=== PATIENT | female | born 1965 | race Caucasian/White ===

== ENCOUNTER 2019-11-29 02:07 | Inpatient (IN) | payer OTHER ==
[~2019-11-29] VITALS: Ht 162.6 cm; Wt 110.0 kg
[2019-11-29] VITALS (10 sets, daily range): BP systolic 100–157; BP diastolic 56–87
[2019-11-29 04:06] LABS: BASOPHIL % 0.7 % (0-2)
[2019-11-29 04:10] LABS: PLATELET COUNT 420 x10^3mcL (130-400); RED CELL DISTRIBUTION WIDTH 16.7 % (11.5-14.5)
[2019-11-29 04:23] LABS: ALBUMIN 1.9 g/dL (3.4-5.0); BILIRUBIN TOTAL 0.3 mg/dL (0.20-1.00); CALCIUM 7.9 mg/dL (8.5-10.1); CARBON DIOXIDE 31.5 mmol/L (21-32); CREATININE SERUM 3.5 mg/dL (0.6-1.0); POTASSIUM SERUM 4.2 mmol/L (3.5-5.1); TOTAL PROTEIN, SERUM 6.1 g/dL (6.4-8.2)
[2019-11-29] MEDS ORDERED: ASPIRIN CHILDRE81 MG PO (06:41)
[2019-11-29] MEDS ORDERED: ATORVASTATIN CA40 M1 PO (06:41)
[2019-11-29] MEDS ORDERED: BUSPIRONE HYDR7.5 MG PO (06:42)
[2019-11-29] MEDS ORDERED: CARVEDILOL ER40 MG PO (06:42)
[2019-11-29] MEDS ORDERED: LASIX40 MG PO (06:43)
[2019-11-29] MEDS ORDERED: LAMOTRIGINE25 M2 PO (06:43)
[2019-11-29] MEDS ORDERED: PROTONIX40 MG/Pac1 PO (06:44)
[2019-11-29] MEDS ORDERED: LEVO-T200 MCG PO (06:44)
[2019-11-29] MEDS ORDERED: CONZIP100 M1 PO (06:46)
[2019-11-29] MEDS ORDERED: SERTRALINE H20 MG/ML PO (06:46)
[2019-11-30] VITALS (34 sets, daily range): BP systolic 90–151; BP diastolic 58–86
[2019-11-30 06:45] LABS: BASOPHIL % 0 % (0-2); PLATELET COUNT 358 x10^3mcL (130-400); RED CELL DISTRIBUTION WIDTH 16.1 % (11.5-14.5)
[2019-11-30 06:48] LABS: BILIRUBIN TOTAL 0.47 mg/dL (0.20-1.00); CALCIUM 7.8 mg/dL (8.5-10.1); CREATININE SERUM 3.8 mg/dL (0.6-1.0); POTASSIUM SERUM 3.5 mmol/L (3.5-5.1)
[2019-11-30 06:52] LABS: ALBUMIN 2.5 g/dL (3.4-5.0); TOTAL PROTEIN, SERUM 5.8 g/dL (6.4-8.2)
[2019-12-01] VITALS (24 sets, daily range): BP systolic 89–126; BP diastolic 52–77
[2019-12-01 05:42] LABS: ALBUMIN 2.5 g/dL (3.4-5.0); BILIRUBIN TOTAL 0.4 mg/dL (0.20-1.00); CALCIUM 7.9 mg/dL (8.5-10.1); CARBON DIOXIDE 32.7 mmol/L (21-32); CREATININE SERUM 2.7 mg/dL (0.6-1.0); POTASSIUM SERUM 3.2 mmol/L (3.5-5.1); TOTAL PROTEIN, SERUM 5.9 g/dL (6.4-8.2)
[2019-12-02] VITALS (18 sets, daily range): BP systolic 95–135; BP diastolic 59–83
[2019-12-02 05:32] LABS: BASOPHIL % 0.3 % (0-2); PLATELET COUNT 341 x10^3mcL (130-400); RED CELL DISTRIBUTION WIDTH 16.1 % (11.5-14.5)
[2019-12-02 05:57] LABS: ALBUMIN 2.3 g/dL (3.4-5.0); BILIRUBIN TOTAL 0.35 mg/dL (0.20-1.00); CALCIUM 7.9 mg/dL (8.5-10.1); CARBON DIOXIDE 33.2 mmol/L (21-32); POTASSIUM SERUM 3.5 mmol/L (3.5-5.1); TOTAL PROTEIN, SERUM 5.9 g/dL (6.4-8.2)
[2019-12-03] VITALS (16 sets, daily range): BP systolic 94–126; BP diastolic 53–77
[2019-12-03 05:13] LABS: BASOPHIL % 0.4 % (0-2); PLATELET COUNT 276 x10^3mcL (130-400)
[2019-12-03 05:16] LABS: RED CELL DISTRIBUTION WIDTH 16.5 % (11.5-14.5)
[2019-12-03 05:51] LABS: BILIRUBIN TOTAL 0.37 mg/dL (0.20-1.00); CALCIUM 8.1 mg/dL (8.5-10.1); CARBON DIOXIDE 33.5 mmol/L (21-32); CREATININE SERUM 2.6 mg/dL (0.6-1.0); POTASSIUM SERUM 3.4 mmol/L (3.5-5.1)
[2019-12-03 05:56] LABS: ALBUMIN 2.4 g/dL (3.4-5.0); TOTAL PROTEIN, SERUM 5.8 g/dL (6.4-8.2)
[2019-12-04] VITALS (15 sets, daily range): BP systolic 104–145; BP diastolic 57–76
[2019-12-04 06:39] LABS: PLATELET COUNT 261 x10^3mcL (130-400)
[2019-12-04 06:46] LABS: BILIRUBIN TOTAL 0.3 mg/dL (0.20-1.00); CALCIUM 7.9 mg/dL (8.5-10.1); CARBON DIOXIDE 26.6 mmol/L (21-32); CREATININE SERUM 2.7 mg/dL (0.6-1.0); POTASSIUM SERUM 3.8 mmol/L (3.5-5.1)
[2019-12-04 06:58] LABS: ALBUMIN 2.1 g/dL (3.4-5.0); RED CELL DISTRIBUTION WIDTH 16.5 % (11.5-14.5); TOTAL PROTEIN, SERUM 5.7 g/dL (6.4-8.2)
[2019-12-05] VITALS (15 sets, daily range): BP systolic 72–121; BP diastolic 46–94
[2019-12-05 05:34] LABS: BASOPHIL % 0.8 % (0-2); PLATELET COUNT 262 x10^3mcL (130-400); RED CELL DISTRIBUTION WIDTH 16.4 % (11.5-14.5)
[2019-12-05 07:56] LABS: CALCIUM 8.3 mg/dL (8.5-10.1); CARBON DIOXIDE 27.3 mmol/L (21-32); CREATININE SERUM 2.7 mg/dL (0.6-1.0)
[2019-12-06] VITALS (37 sets, daily range): BP systolic 85–201; BP diastolic 40–82
[2019-12-06 06:24] LABS: BASOPHIL % 0.2 % (0-2); PLATELET COUNT 312 x10^3mcL (130-400)
[2019-12-06 06:26] LABS: RED CELL DISTRIBUTION WIDTH 16.7 % (11.5-14.5)
[2019-12-07] VITALS (16 sets, daily range): BP systolic 87–125; BP diastolic 44–74
[2019-12-07 06:01] LABS: BASOPHIL % 0.1 % (0-2); PLATELET COUNT 311 x10^3mcL (130-400)
[2019-12-07 06:02] LABS: CALCIUM 8.6 mg/dL (8.5-10.1); CREATININE SERUM 2.4 mg/dL (0.6-1.0); MAGNESIUM 1.4 mg/dL (1.8-2.4); PHOSPHOROUS 3.6 mg/dL (2.5-4.9); POTASSIUM SERUM 4.1 mmol/L (3.5-5.1); RED CELL DISTRIBUTION WIDTH 16.9 % (11.5-14.5)
[2019-12-08] VITALS (17 sets, daily range): BP systolic 11–139; BP diastolic 56–87
[2019-12-08 06:16] LABS: BASOPHIL % 0.1 % (0-2); PLATELET COUNT 300 x10^3mcL (130-400); RED CELL DISTRIBUTION WIDTH 16.9 % (11.5-14.5)
[2019-12-08 06:46] LABS: ALBUMIN 2.6 g/dL (3.4-5.0); BILIRUBIN DIRECT 0.12 mg/dL (0.0-0.2); BILIRUBIN TOTAL 0.4 mg/dL (0.20-1.00); CALCIUM 8.6 mg/dL (8.5-10.1); CARBON DIOXIDE 33.3 mmol/L (21-32); CREATININE SERUM 2.4 mg/dL (0.6-1.0); POTASSIUM SERUM 4.4 mmol/L (3.5-5.1); TOTAL PROTEIN, SERUM 6.2 g/dL (6.4-8.2)
[2019-12-09] VITALS (8 sets, daily range): BP systolic 91–127; BP diastolic 56–73; Ht 162.6 cm; Wt 110.0 kg
[2019-12-09 05:50] LABS: PLATELET COUNT 231 x10^3mcL (130-400)
[2019-12-09 05:51] LABS: RED CELL DISTRIBUTION WIDTH 16.6 % (11.5-14.5)
[2019-12-09 06:05] LABS: CARBON DIOXIDE 29.1 mmol/L (21-32); CREATININE SERUM 2.6 mg/dL (0.6-1.0); MAGNESIUM 1.9 mg/dL (1.8-2.4); PHOSPHOROUS 3.2 mg/dL (2.5-4.9); POTASSIUM SERUM 4.7 mmol/L (3.5-5.1)
[2019-12-09 06:07] LABS: BAND NEUTROPHIL 2 % (0-10); MONOCYTE 11 % (0-7); SEGMENTED NEUTROPHILS 77 % (37-75); rbc morphology (normal/abnorm) NORMAL (NORMAL)
[2019-12-09 16:13] LABS: SOURCE FLUID THORACENTESIS
[2019-12-09 16:14] LABS: APPEARANCE FLUID CLOUDY; COLOR FLUID YELLOW; LYMPHOCYTE FLUID 77 %; MONOCYTE FLUID 10 %; RBC FLUID 10066 /cumm; WBC FLUID 33 /cumm
[2019-12-09 16:17] LABS: PH - BODY FLUID 7.5
== END 2019-12-09 22:09 | disposition expired | DRG 720 ==
LOC: ED 02:07 → IC 04:37
PROVIDERS: Emergency Medicine; Internal Medicine Pulmonary Disease; ADMIT Internal Medicine; ATTEND Internal Medicine
PROC: 5A1955Z Respiratory Ventilation, Greater than 96 Consecutive Hours (ICD-10-PCS; principal; 2019-11-29)
PROC: 5A09357 Assistance with Respiratory Ventilation, Less than 24 Consecutive Hours, Continuous Positive Airway Pressure (ICD-10-PCS; 2019-11-29)
PROC: 0BH17EZ Insertion of Endotracheal Airway into Trachea, Via Natural or Artificial Opening (ICD-10-PCS; 2019-11-29)
PROC: 02HV33Z Insertion of Infusion Device into Superior Vena Cava, Percutaneous Approach (ICD-10-PCS; 2019-11-30)
PROC: B548ZZA Ultrasonography of Superior Vena Cava, Guidance (ICD-10-PCS; 2019-11-30)
PROC: 5A1D70Z Performance of Urinary Filtration, Intermittent, Less than 6 Hours Per Day (ICD-10-PCS; 2019-11-30)
PROC: 02PYX3Z Removal of Infusion Device from Great Vessel, External Approach (ICD-10-PCS; 2019-12-03)
PROC: 02H633Z Insertion of Infusion Device into Right Atrium, Percutaneous Approach (ICD-10-PCS; 2019-12-03)
PROC: B548ZZA Ultrasonography of Superior Vena Cava, Guidance (ICD-10-PCS; 2019-12-03)
PROC: 5A1D70Z Performance of Urinary Filtration, Intermittent, Less than 6 Hours Per Day (ICD-10-PCS; 2019-12-04)
PROC: 0W993ZZ Drainage of Right Pleural Cavity, Percutaneous Approach (ICD-10-PCS; 2019-12-09)
PROC: 5A12012 Performance of Cardiac Output, Single, Manual (ICD-10-PCS; 2019-12-09)
DX: A41.9 Sepsis, unspecified organism (principal); N17.0 Acute kidney failure with tubular necrosis; R65.21 Severe sepsis with septic shock; G93.41 Metabolic encephalopathy; J91.0 Malignant pleural effusion; J18.9 Pneumonia, unspecified organism; J96.01 Acute respiratory failure with hypoxia; J96.02 Acute respiratory failure with hypercapnia; I46.9 Cardiac arrest, cause unspecified; C56.9 Malignant neoplasm of unspecified ovary; Z20.828 Contact with and (suspected) exposure to other viral communicable diseases; E66.01 Morbid (severe) obesity due to excess calories; E03.9 Hypothyroidism, unspecified; E78.5 Hyperlipidemia, unspecified; R00.1 Bradycardia, unspecified; Z66 Do not resuscitate; N18.4 Chronic kidney disease, stage 4 (severe); E87.2 Acidosis; I12.9 Hypertensive chronic kidney disease with stage 1 through stage 4 chronic kidney disease, or unspecified chronic kidney disease; Z86.73 Personal history of transient ischemic attack (TIA), and cerebral infarction without residual deficits; Z88.5 Allergy status to narcotic agent; Z88.8 Allergy status to other drugs, medicaments and biological substances; Z87.891 Personal history of nicotine dependence; Z68.41 Body mass index [BMI] 40.0-44.9, adult; Z79.899 Other long term (current) drug therapy
CPT/HCPCS: 32555; 36600; 82962; 83880; 87107; A4628; C1729; C9113; G0378; J1644; J1720; J1940; J2060; J2185; J2248; J2250; J2405; J2543; J2765; J2997; J3010; J3370; J3475; J3480; J3490; J7030; J7040; J7060; P9047; Q0092; U0003-CS